=== PATIENT | female | born 1950 | race Caucasian/White ===

== ENCOUNTER → 2023-08-27 08:52 | Outpatient (REF) | payer MEDICARE, OTHER, SELFPAY ==
[2023-08-27 11:44] LABS: % Basophils 0.4 % (0-2); % Eosinophils 2.8 % (0-6); % Immature Granulocytes 0.3 % (0-0.5); % Lymphocytes 20.3 % (20.5-51.1); % Monocytes 6.5 % (1.7-9.3); % Neutrophils 69.7 % (42.2-75.2); Absolute Eosinophils 0.2 10^3/uL (0-0.7); Absolute Lymphocytes 1.4 10^3/uL (1.2-3.4); Absolute Monocytes 0.4 10^3/uL (0.1-0.6); Absolute Neutrophils 4.7 10^3/uL (1.4-6.5); Hematocrit 43.4 % (37.0-47.0); Hemoglobin 15.2 g/dL (12.0-16.0); Mean Corpuscular Hgb 29.9 pg (27.0-31.0); Mean Corpuscular Volume 85.4 fL (81.0-99.0); Mean Platelet Volume 10.5 fL (7.4-10.4); Nucleated Red Blood Cells % 0 %; Platelet Count 211 10^3/uL (130-400); Red Blood Cell Count 5.08 10^6/uL (4.20-5.40); Red Cell Dist. Width 12.7 % (11.5-14.5); Urine Albumin Negative (Neg - Trace); Urine Bilirubin 1+ (Negative); Urine Character Very Cloudy (Clear); Urine Color Yellow; Urine Glucose Negative (Negative); Urine Ketone Trace (Negative); Urine Leukocyte Trace (Negative); Urine Nitrite Negative (Negative); Urine Occult Blood Negative (Negative); Urine Urobilinogen Negative (Neg - 1+); White Blood Cell Count 6.8 10^3/uL (4.8-10.8)
[2023-08-27 11:48] LABS: ALT (SGPT) 32 U/L (0-35); AST (SGOT) 40 U/L (14-36); Albumin 4.6 g/dl (3.5-5.0); Alkaline Phosphatase 87 U/L (38-126); Blood Urea Nitrogen 18 mg/dl (7-17); Carbon Dioxide 29 mmol/L (22-30); Chloride 102 mmol/L (98-107); Glucose 109 mg/dl (70-99); HDL Cholesterol 73 mg/dl; LDL Cholesterol, Calculated 68 mg/dl; Potassium 3.7 mmol/L (3.5-5.1); Sodium 140 mmol/L (135-145); Total Bilirubin 0.9 mg/dl (0.2-1.3); Total Cholesterol 160 mg/dl (50-199); Total Protein 7.2 g/dl (6.3-8.2); Triglyceride 99 mg/dl (10-149); Very Low Density Lipoprotein 19 mg/dl (0-30); eGFR > 60.00
[2023-08-27 11:58] LABS: Urine Amorphous Seen; Urine White Cell 0-2 /HPF (0-5)
[2023-08-27 11:59] LABS: Urine Red Blood Cell None Seen /HPF (0-2)
[2023-08-27 12:16] LABS: TSH Reflex To Free T4 2.59 uIU/ml (0.47-4.68)
[2023-08-27 14:07] LABS: Glycohemoglobin (HgbA1c) 5.8 % (4.0-5.6)
== END ==
LOC: HWLAB 08:52
PROVIDERS: ATTENDING PHYSICIAN Nurse Practitioner Adult Health
DX: E78.00 Pure hypercholesterolemia, unspecified (principal); I10 Essential (primary) hypertension; R73.01 Impaired fasting glucose
CPT/HCPCS: 36415; 80053; 80061; 81003; 81015; 83036; 84443; 85025

== ENCOUNTER → 2023-11-13 08:37 | Outpatient (REF) | payer MEDICARE, OTHER, SELFPAY ==
[2023-11-13 12:23] LABS: ALT (SGPT) 29 U/L (0-35); AST (SGOT) 37 U/L (14-36); Albumin 4.4 g/dl (3.5-5.0); Alkaline Phosphatase 89 U/L (38-126); Blood Urea Nitrogen 18 mg/dl (7-17); Calcium 9.9 mg/dl (8.4-10.2); Carbon Dioxide 29 mmol/L (22-30); Chloride 104 mmol/L (98-107); Glucose 112 mg/dl (70-99); HDL Cholesterol 68 mg/dl; LDL Cholesterol, Calculated 79 mg/dl; Potassium 3.6 mmol/L (3.5-5.1); Sodium 141 mmol/L (135-145); Total Bilirubin 0.7 mg/dl (0.2-1.3); Total Cholesterol 167 mg/dl (50-199); Total Protein 6.9 g/dl (6.3-8.2); Triglyceride 102 mg/dl (10-149); Very Low Density Lipoprotein 20 mg/dl (0-30); eGFR > 60.00
== END ==
LOC: HWLAB 08:37
PROVIDERS: FAMILY PHYSICIAN Nurse Practitioner Adult Health
DX: I10 Essential (primary) hypertension (principal); E78.5 Hyperlipidemia, unspecified
CPT/HCPCS: 36415; 80053; 80061

== ENCOUNTER → 2024-02-25 09:11 | Outpatient (REF) | payer MEDICARE, OTHER, SELFPAY ==
[2024-02-25 13:40] LABS: ALT (SGPT) 26 U/L (0-35); AST (SGOT) 33 U/L (14-36); Albumin 4.5 g/dl (3.5-5.0); Alkaline Phosphatase 77 U/L (38-126); Blood Urea Nitrogen 20 mg/dl (7-17); Calcium 9.7 mg/dl (8.4-10.2); Carbon Dioxide 30 mmol/L (22-30); Chloride 102 mmol/L (98-107); Glucose 111 mg/dl (70-99); HDL Cholesterol 71 mg/dl; LDL Cholesterol, Calculated 80 mg/dl; Potassium 3.8 mmol/L (3.5-5.1); Sodium 143 mmol/L (135-145); Total Cholesterol 169 mg/dl (50-199); Total Protein 6.8 g/dl (6.3-8.2); Triglyceride 94 mg/dl (10-149); Very Low Density Lipoprotein 18 mg/dl (0-30); eGFR > 60.00
[2024-02-25 14:52] LABS: Glycohemoglobin (HgbA1c) 5.6 % (4.0-5.6)
== END ==
LOC: HWLAB 09:11
PROVIDERS: ATTENDING PHYSICIAN Nurse Practitioner Adult Health
DX: E78.00 Pure hypercholesterolemia, unspecified (principal); R73.01 Impaired fasting glucose
CPT/HCPCS: 36415; 80053; 80061; 83036

== ENCOUNTER → 2024-09-08 08:47 | Outpatient (REF) | payer MEDICARE, OTHER, SELFPAY ==
[2024-09-08 12:13] LABS: ALT (SGPT) 28 U/L (0-35); AST (SGOT) 29 U/L (14-36); Albumin 4.2 g/dl (3.5-5.0); Alkaline Phosphatase 75 U/L (38-126); Blood Urea Nitrogen 21 mg/dl (7-17); Calcium 10.1 mg/dl (8.4-10.2); Carbon Dioxide 30 mmol/L (22-30); Chloride 105 mmol/L (98-107); Glucose 111 mg/dl (70-99); HDL Cholesterol 69 mg/dl; LDL Cholesterol, Calculated 91 mg/dl; Potassium 3.7 mmol/L (3.5-5.1); Sodium 143 mmol/L (135-145); Total Bilirubin 0.9 mg/dl (0.2-1.3); Total Cholesterol 177 mg/dl (50-199); Total Protein 6.8 g/dl (6.3-8.2); Triglyceride 88 mg/dl (10-149); Very Low Density Lipoprotein 17 mg/dl (0-30); eGFR > 60.00
[2024-09-08 12:26] LABS: % Basophils 0.8 % (0-2); % Eosinophils 2.8 % (0-6); % Immature Granulocytes 0.3 % (0-0.5); % Lymphocytes 19.2 % (20.5-51.1); % Monocytes 6.3 % (1.7-9.3); % Neutrophils 70.6 % (42.2-75.2); Absolute Basophils 0.1 10^3/uL (0-0.2); Absolute Eosinophils 0.2 10^3/uL (0-0.7); Absolute Lymphocytes 1.7 10^3/uL (1.2-3.4); Absolute Monocytes 0.6 10^3/uL (0.1-0.6); Absolute Neutrophils 6.1 10^3/uL (1.4-6.5); Hematocrit 42.9 % (37.0-47.0); Mean Corpuscular Hgb 30.1 pg (27.0-31.0); Mean Platelet Volume 10.2 fL (7.4-10.4); Nucleated Red Blood Cells % 0 %; Platelet Count 193 10^3/uL (130-400); Red Blood Cell Count 4.99 10^6/uL (4.20-5.40); Red Cell Dist. Width 12.5 % (11.5-14.5); White Blood Cell Count 8.7 10^3/uL (4.8-10.8)
[2024-09-08 12:44] LABS: TSH Reflex To Free T4 3.17 uIU/ml (0.47-4.68)
[2024-09-08 13:30] LABS: Glycohemoglobin (HgbA1c) 5.6 % (4.0-5.6)
== END ==
LOC: HWLAB 08:47
PROVIDERS: ATTENDING PHYSICIAN Nurse Practitioner Adult Health
DX: Z13.9 Encounter for screening, unspecified (principal); E78.00 Pure hypercholesterolemia, unspecified; R73.01 Impaired fasting glucose
CPT/HCPCS: 36415; 80053; 80061; 83036; 84443; 85025

== ENCOUNTER → 2025-03-05 09:08 | Outpatient (REF) | payer MEDICARE, OTHER, SELFPAY ==
[2025-03-05 12:23] LABS: ALT (SGPT) 29 U/L (0-35); AST (SGOT) 36 U/L (14-36); Albumin 4.5 g/dl (3.5-5.0); Alkaline Phosphatase 70 U/L (38-126); Blood Urea Nitrogen 15 mg/dl (7-17); Calcium 9.6 mg/dl (8.4-10.2); Carbon Dioxide 33 mmol/L (22-30); Chloride 103 mmol/L (98-107); Glucose 105 mg/dl (70-99); HDL Cholesterol 70 mg/dl; LDL Cholesterol, Calculated 71 mg/dl; Potassium 3.1 mmol/L (3.5-5.1); Sodium 141 mmol/L (135-145); Total Protein 7.1 g/dl (6.3-8.2); Very Low Density Lipoprotein 12 mg/dl (0-30); eGFR > 60.00
== END ==
LOC: HWLAB 09:08
PROVIDERS: ATTENDING PHYSICIAN Nurse Practitioner Adult Health
DX: E78.00 Pure hypercholesterolemia, unspecified (principal)
CPT/HCPCS: 36415; 80053; 80061

== ENCOUNTER → 2025-03-12 10:02 | Outpatient (REF) | payer MEDICARE, OTHER, SELFPAY ==
[2025-03-12 12:55] LABS: Potassium 3.5 mmol/L (3.5-5.1)
== END ==
LOC: HWLAB 10:02
PROVIDERS: ATTENDING PHYSICIAN Nurse Practitioner Adult Health
DX: E87.6 Hypokalemia (principal)
CPT/HCPCS: 36415; 84132

== ENCOUNTER → 2025-03-25 09:32 | Outpatient (REF) | payer MEDICARE, OTHER, SELFPAY ==
[2025-03-25 13:20] LABS: Potassium 3.5 mmol/L (3.5-5.1)
== END ==
LOC: HWLAB 09:32
PROVIDERS: ATTENDING PHYSICIAN Nurse Practitioner Adult Health
DX: E87.6 Hypokalemia (principal)
CPT/HCPCS: 36415; 84132